=== PATIENT | female | born 1955 | race Caucasian/White ===

== ENCOUNTER → 2023-01-01 | Outpatient (CLI) | payer MEDICARE ==
[~2023-01-01] MED LIST: ASPIRIN E.C. 8181 MG PO; CEPHALEXIN500 M1 PO; COLACE 100100 MG/CAP PO; COZAAR 25MG25 MG/TAB PO; DIFLUCAN150 MG PO; DILAUDID 2MG TAB2 MG PO; DULCOLAX S10 MG/SUPP REC; FREESTYLE PREC1 EAC5 MC; GLUCOPHAGE500 MG/TAB PO; GLUCOSE TEST ST1 DEV MC; HUMALOG100 U/ML SQ; LANTUS SOLOS100 U/ML SQ; LANTUS100 U/ML SC; LANTUS100 U/ML SQ; LEVAQUIN 750MG750 M1 PO; LEVEMIR SQ; LIPITOR 40MG TA40 MG PO; LIPITOR20 MG PO; LOVENOX 4040 MG/0.4 SQ; MEDROL 4MG DOSPA4 MG PO; NICODERM C21 MG/PATC TD; NICODERM C21 MG/PATC TOP; NO HOME MEDICATIONS; NORCO 325 MG-51 TAB PO; NOVLOG; NOVLOG SQ; PLAVIX 75MG TAB75 MG PO; TYLENOL 325MG325 MG PO; ULTRAM 50MG TAB50 MG PO; XANAX 0.5MG0.5 MG PO; ZESTRIL 5MG5 MG PO; ZOFRAN 4MG T4 MG/TAB PO
== END ==
LOC: COL.RAD 10:02
DX: I70.208 Unspecified atherosclerosis of native arteries of extremities, other extremity (principal); I70.202 Unspecified atherosclerosis of native arteries of extremities, left leg

== ENCOUNTER → 2023-04-23 | Outpatient (REF) | payer MEDICARE | LOC: ZCOL.LAB 10:37 | DX: N39.0 Urinary tract infection, site not specified (principal) ==

== ENCOUNTER 2023-07-27 09:16 | Emergency (ER) | payer MEDICARE, MEDICAID ==
[~2023-07-27] VITALS: Ht 162.6 cm; Wt 58.2 kg
[2023-07-27 09:24] VITALS: TEMP 97.9
[2023-07-27] MEDS ORDERED: NS 1,000 ML IV ONE (09:45)
[2023-07-27 10:13] LABS: BASO % 0.5 % (0.0-2.0); EOS # 0.1 K/mm3 (0.0-0.7); EOS % 2.7 % (0.0-4.0); GRAN # 2.6 K/mm3 (1.4-6.5); GRAN % 62.7 % (42.2-75.2); HEMATOCRIT 37.5 % (37.0-47.0); HEMOGLOBIN 12.7 g/dl (12.5-16.0); LYMPH # 1.2 K/mm3 (1.2-3.4); LYMPH % 28.5 % (20.0-51.0); MEAN CELL VOLUME 90 fl (80.0-100.0); MEAN CORPUSCULAR HEMOGLOBIN 31 pg (27-31); MEAN CORPUSCULAR HGB CONC 34 g/dl (33.0-37.0); MEAN PLATELET VOLUME 9.3 fl (7.4-10.4); MONO # 0.2 K/mm3 (0.1-0.6); MONO % 5.4 % (1.7-9.3); PLATELET COUNT 362 K/mm3 (130-400); RED BLOOD COUNT 4.16 M/mm3 (4.10-5.30); REDCELL DISTRIBUTION WIDTH-CV 12.7 % (11.5-14.5)
[2023-07-27] MEDS ORDERED: Ondansetron 4 MG/2 ML VIAL IV ONE (10:30)
[2023-07-27] MEDS ORDERED: fentaNYL 50 MCG/ML 2 ML VIAL IV ONE (10:30)
[2023-07-27 10:42] LABS: ALBUMIN 3.2 g/dL (3.4-4.8); BILIRUBIN,TOTAL 0.6 mg/dL (0.2-1.2); CALCIUM 9.6 mg/dL (8.4-10.2); CREATININE, serum 0.66 mg/dL (0.57-1.11); POTASSIUM 3.9 mEq/L (3.5-4.5); TOTAL PROTEIN 7.2 g/dl (6.2-8.1)
[2023-07-27 11:37] LABS: C-REACTIVE PROTEIN 0.22 mg/dL (0.00-0.50)
[2023-07-27] MEDS ORDERED: Iohexol 300 - 100 ML VIAL IV ONE (11:41)
[2023-07-27] MEDS ORDERED: NS 100 ML IV SCH (11:41)
[2023-07-27 11:49] LABS: COLLECTION METHOD CLEAN CATCH
[2023-07-27 11:52] LABS: URINE APPEARANCE CLEAR (CLEAR/HAZY); URINE BLOOD NEGATIVE (NEGATIVE); URINE COLOR YELLOW (YELLOW); URINE GLUCOSE NEGATIVE (NEGATIVE); URINE KETONE NEGATIVE (NEGATIVE); URINE NITRATE NEGATIVE (NEGATIVE); URINE PROTEIN(semi-quant) NEGATIVE (NEGATIVE)
[2023-07-27] MEDS ORDERED: ZOFRAN ODT4 MG PO (13:09)
[2023-07-27] MEDS ORDERED: HYDROcodone/Acetaminophen 7.5-325 MG TAB PO ONE (13:15)
[2023-07-27 13:25] VITALS: BP 142/84; PULSE 82
== END 2023-07-27 13:25 | disposition home or self-care (01) ==
LOC: COL.ER 09:16
PROVIDERS: Emergency Medicine
DX: R10.30 Lower abdominal pain, unspecified (principal); R11.2 Nausea with vomiting, unspecified; Z87.891 Personal history of nicotine dependence
CPT/HCPCS: J2405; J3010; J7030; Q9967

== ENCOUNTER 2023-08-05 06:12 | Emergency (ER) | payer MEDICARE, MEDICAID ==
[~2023-08-05] VITALS: Ht 162.6 cm; Wt 58.2 kg
[~2023-08-05 06:12] MED LIST changes: +ZOFRAN ODT4 MG PO
[2023-08-05 06:21] VITALS: TEMP 98.1
[2023-08-05] MEDS ORDERED: Acetaminophen 500 MG TAB PO ONE (07:00)
[2023-08-05 07:56] LABS: BASO % 0.4 % (0.0-2.0); EOS # 0.2 K/mm3 (0.0-0.7); EOS % 3.7 % (0.0-4.0); GRAN # 2.8 K/mm3 (1.4-6.5); GRAN % 55.1 % (42.2-75.2); HEMATOCRIT 37.8 % (37.0-47.0); HEMOGLOBIN 12.5 g/dl (12.5-16.0); LYMPH # 1.7 K/mm3 (1.2-3.4); LYMPH % 33.1 % (20.0-51.0); MEAN CELL VOLUME 92 fl (80.0-100.0); MEAN CORPUSCULAR HEMOGLOBIN 30 pg (27-31); MEAN CORPUSCULAR HGB CONC 33 g/dl (33.0-37.0); MEAN PLATELET VOLUME 9.5 fl (7.4-10.4); MONO # 0.4 K/mm3 (0.1-0.6); MONO % 7.3 % (1.7-9.3); PLATELET COUNT 293 K/mm3 (130-400); RED BLOOD COUNT 4.11 M/mm3 (4.10-5.30); REDCELL DISTRIBUTION WIDTH-CV 13.1 % (11.5-14.5)
[2023-08-05 08:10] LABS: BILIRUBIN,TOTAL 0.5 mg/dL (0.2-1.2); C-REACTIVE PROTEIN 0.23 mg/dL (0.00-0.50); CALCIUM 9.2 mg/dL (8.4-10.2); CREATININE, serum 0.6 mg/dL (0.57-1.11); POTASSIUM 3.8 mEq/L (3.5-4.5); TOTAL PROTEIN 6.7 g/dl (6.2-8.1)
[2023-08-05 08:18] LABS: TROPONIN-I 0.012 ng/mL (0.00-0.033)
[2023-08-05 09:19] VITALS: BP 148/91; PULSE 86
[2023-08-05 09:52] LABS: ERYTHROCYTE SEDIMENTATION RATE 18 mm/hr (0-30)
[2023-08-05] MEDS ORDERED: Ketorolac 15 MG/ML VIAL IV ONE (10:15)
== END 2023-08-05 11:05 | disposition home or self-care (01) ==
LOC: COL.ER 06:12
PROVIDERS: Emergency Medicine
DX: M25.532 Pain in left wrist (principal); Z87.891 Personal history of nicotine dependence; Z79.01 Long term (current) use of anticoagulants